=== PATIENT | female | born 1940 | race African-American/Black ===

== ENCOUNTER 2023-09-25 13:22 | Emergency (ER) | payer OTHER ==
[~2023-09-25] VITALS: Ht 157.5 cm; Wt 68.0 kg
[2023-09-25] MEDS ORDERED: VENCLEXTA100 MG PO (14:23)
[2023-09-25] MEDS ORDERED: 0.9 % SODIUM CHLORIDE 1,000 ML IV ONE (16:30)
[2023-09-25] MEDS ORDERED: KETOROLAC TROMETHAMINE 15 MG VIAL IV ONE (16:30)
[2023-09-25] MEDS ORDERED: FAMOtidine 10 MG/ML (4ML VIAL) IV ONE (16:30)
[2023-09-25] MEDS ORDERED: ONDANSETRON HCL 2 MG/ML VIAL IV ONE (16:30)
[2023-09-25 16:42] LABS: HEMATOCRIT 38.7 % (36.0-45.00); HEMOGLOBIN 12.8 g/dL (12.0-15.00); MEAN CELL VOLUME 82.8 fL (80.00-100.00); MEAN CORPUSCULAR HEMOGLOBIN 27.4 pg (27.00-32.0); MEAN CORPUSCULAR HGB CONC 33.1 g/dl (32.0-36.0); PLATELET COUNT 193 K/uL (150-450); RED BLOOD COUNT 4.68 M/uL (4.00-6.00); RED CELL DISTRIBUTION WIDTH 14.6 % (11.5-14.5)
[2023-09-25 17:04] LABS: PARTIAL THROMBOPLASTIN TIME 30.1 SECONDS (22.0-34.0); PROTHROMBIN TIME 10.5 SECONDS (9.0-11.5)
[2023-09-25 17:09] LABS: ALBUMIN 3.5 gm/dL (3.4-5.0); BILIRUBIN TOTAL 0.56 mg/dL (0.3-1.2); CALCIUM 9.3 mg/dL (8.5-10.1); CREATININE SERUM 0.97 mg/dL (0.55-1.02); GFR 54.58; POTASSIUM 3.98 mEq/L (3.5-5.1); TOTAL PROTEIN 7.5 gm/dL (6.4-8.2)
[2023-09-25 17:19] LABS: URINE APPEARANCE Clear; URINE BILIRRUBIN Negative (NEGATIVE); URINE BLOOD Negative; URINE COLOR Yellow; URINE GLUCOSE Negative (NEGATIVE); URINE KETONE Negative (NEGATIVE); URINE LEUKOCYTE Small; URINE NITRATE Negative; URINE PROTEIN Trace (NEGATIVE)
[2023-09-25 17:20] LABS: URINE BACTERIA 70.5 uL (0.0-1933); URINE EPITHELIAL CELLS 7.8 uL (0.0-38.8); URINE RBC 7.7 uL (0.0-20.8); URINE WBC 179.2 uL (0.0-23.2)
[2023-09-25 17:28] LABS: URINE CAST 0.15 uL (0.0-1.40)
[2023-09-25] MEDS ORDERED: BACTRIM DS TAB1 EACH PO (20:31)
[2023-09-25] MEDS ORDERED: PEPCID AC20 MG PO (20:31)
== END 2023-09-25 20:39 | disposition home or self-care (01) ==
LOC: ER 13:22
PROVIDERS: General Practice
DX: R10.12 Left upper quadrant pain (principal); Z85.89 Personal history of malignant neoplasm of other organs and systems; J90 Pleural effusion, not elsewhere classified